=== PATIENT | female | born 1960 | race Caucasian/White ===

== ENCOUNTER 2019-03-26 14:16 | Emergency (ER) | payer BC ==
--- NOTE | 2019-03-26 14:21 | UC ---
Laceration HPI - HPI Summary HPI Summary: 58 yo female presents with laceration. She tells me that about 2 hours [employer] she was running and tripped over her own feet and fell forward onto the sidewalk. She put her hands out, but her right eyebrow hit the ground and she sustained a small laceration to the area. No LOC. She cleansed the area and applied a band- aid and came to urgent care. She does not take any blood thinners. She denies headache, dizziness, vision changes, numbness, n/v. Unsure date of last tetanus - History Of Current Complaint Stated Complaint: HEAD LAC Time Seen by Provider: 03/26/19 14:18 Hx Obtained From: Patient Laceration Location: Head Mechanism Of Injury: Blunt Trauma Onset/Duration: Sudden Onset Severity: Mild Pain Intensity: 2 Pain Scale Used: 0-10 Numeric - Allergies/Home Medications Allergies/Adverse Reactions: Allergies Allergy/AdvReac Type Severity Reaction Status Date / Time Penicillins Allergy Hives Verified 03/26/19 14:33 PMH/Surg Hx/FS Hx/Imm Hx - Additional Past Medical History Additional PMH: Allergies - Surgical History Surgical History: Yes Surgery Procedure, Year, and Place: C-SECTIONS x2. TUBAL LIGATION - Family History Known Family History: Positive: Non-Contributory - Social History Occupation: Employed Full-time Lives: With Family Alcohol Use: Occasionally Alcohol Amount: once monthly Substance Use Type: None Smoking Status (MU): Never Smoked Tobacco Have You Smoked in the Last Year: No Review of Systems All Other Systems Reviewed And Are Negative: No Constitutional: Positive: Negative Skin: Positive: Other - Laceration forehead Respiratory: Positive: Negative Cardiovascular: Positive: Negative Neurovascular: Positive: Negative Neurological: Positive: Negative Psychological: Positive: Negative Physical Exam - Summary Physical Exam Summary: GENERAL: NAD. WDWN. No pain distress. SKIN: Right eyebrow: lateral aspect with 1.0cm linear laceration just through the epidermis. Well approximated at rest. Clean. Scant active bleeding. EYES: PERRLA. EOMI. CHEST: No accessory muscle use. Breathing comfortably and in no distress. CV: Pulses intact. Cap refill <2seconds NEURO: Alert. PSYCH: Age appropriate behavior. Triage Information Reviewed: Yes Vital Signs: Vital Signs: Temp Pulse Resp BP Pulse Ox 99.1 F 74 18 122/73 96 03/26/19 14:27 03/26/19 14:27 03/26/19 14:27 03/26/19 14:27 03/26/19 14:27 Vital Signs Reviewed: Yes Laceration Repair - Laceration Repair 1 Description: Linear Laceration Size After Repair: Length (cm) - 1.0 Modified For Repair: No Cleansing Completed Via Routine Prep: Yes Closure Material: Skin Adhesive Closure Method: Single Layer Suture Of: Skin Laceration Course/Dx - Course/Dx Course Of Treatment: The wound was cleansed with saline. Laceration is well approximated at rest and not located in an area of tension, therefore dermabond was applied and bandaged with a band-aid. tdap updated today - Diagnosis Provider Diagnosis: Laceration of eyebrow Discharge ED - Sign-Out/Discharge Documenting (check all that apply): Patient Departure All imaging exams completed and their final reports reviewed: No Studies - Discharge Plan Condition: Stable Disposition: HOME Patient Education Materials: Skin Adhesive Care (ED) Referrals: Jason Vargas DO [Primary Care Provider] - Additional Instructions: If you develop a fever, shortness of breath, chest pain, new or worsening symptoms - please call your PCP or go to the ED immediately. Change the band-aid daily until well healed (like 5-6 days) Your tetanus shot was updated today - Billing Disposition and Condition Condition: STABLE Disposition: Home - Attestation Statements Provider Attestation: Per institutional requirements, I have reviewed the chart, however, I was not consulted specifically or made aware of this patient by the midlevel provider. I did not personally evaluate, interact with , or disposition this patient.
[2019-03-26] MEDS ORDERED: Tetan/Diph/Pertus SYR(Tdap)* 0.5 ML SYR(BOOSTRIX) use SYR IM ONE (14:31)
[2019-03-26 14:33] VITALS: BP 122/73
== END 2019-03-26 15:00 | disposition home or self-care (01) ==
LOC: UCEAST 14:16
DX: S01.111A Laceration without foreign body of right eyelid and periocular area, initial encounter (principal); W01.0XXA Fall on same level from slipping, tripping and stumbling without subsequent striking against object, initial encounter; Y93.02 Activity, running; Y92.480 Sidewalk as the place of occurrence of the external cause; Z23 Encounter for immunization
CPT/HCPCS: 12011; 90471; 90715; 99211; G0463